=== PATIENT | female | born 1995 | race Caucasian/White ===

== ENCOUNTER 2022-10-23 07:04 | Inpatient (IN) | payer OTHER ==
[2022-10-23] MEDS ORDERED: Promethazine HCl 25 MG/ML VIAL IM PRN ×2 (07:44→08:26)
[2022-10-23] MEDS ORDERED: Acetaminophen 325 MG TAB PO PRN (07:44)
[2022-10-23] MEDS ORDERED: Ondansetron PF 4 MG/2 ML Vial IVP PRN ×2 (07:44→08:26)
[2022-10-23] MEDS ORDERED: Moisturizing Cream (Eucerin) 113 GM JAR TOP PRN (07:44)
[2022-10-23] MEDS ORDERED: diphenhydrAMINE 50 MG/ML VIAL IVP PRN (07:44)
[2022-10-23] MEDS ORDERED: ePHEDrine Sulfate 50 MG/10 ML VIAL SLOW IVP PRN (07:44)
[2022-10-23] MEDS ORDERED: Lactated Ringer's 500 ML IV PRN (07:44)
[2022-10-23] MEDS ORDERED: Naloxone HCl 0.4 mg/ml Vial IVP PRN ×2 (07:44)
[2022-10-23] MEDS ORDERED: Communication Order-Pharmacy FS SCH (07:45)
[2022-10-23] MEDS ORDERED: Fentanyl 2 mcg/Bupivacaine 0.1% Cassette 100 ML EPIDURAL SCH (07:45)
[2022-10-23 07:58] VITALS: BMI 25.2
[2022-10-23] MEDS ORDERED: Penicillin G Potassium 5 MILL.UNITS VIAL ONE (08:04)
[2022-10-23] MEDS ORDERED: Fentanyl 2 mcg/Bup 0.1% Cadd 100 ML ONE (08:22)
[2022-10-23] MEDS ORDERED: Butorphanol Tartrate 1 MG/ML VIAL SLOW IVP PRN (08:26)
[2022-10-23] MEDS ORDERED: Misoprostol 200 MCG TAB PR PRN (08:26)
[2022-10-23] MEDS ORDERED: Lidocaine 1% (PF) 30 ML VIAL SC PRN (08:26)
[2022-10-23] MEDS ORDERED: hydrALAZINE 20 MG/ML VIAL SLOW IVP PRN ×2 (08:26→18:22)
[2022-10-23] MEDS ORDERED: Ibuprofen 800 MG TAB PO PRN (08:26)
[2022-10-23] MEDS ORDERED: HYDROcodone/Acetaminophen 5/325 mg Tablet PO PRN ×4 (08:26→18:22)
[2022-10-23] MEDS ORDERED: Lactated Ringer's 1,000 ML IV SCH (08:30)
[2022-10-23] MEDS ORDERED: Penicillin G Potassium 5 MILL.UNITS in Sodium Chloride 0.9% 100 ML IVPB SCH (08:30)
[2022-10-23] MEDS ORDERED: NS w/ Oxytocin 30 units 500 ML IV SCH ×2 (08:30→18:22)
[2022-10-23 08:57] LABS: Hemoglobin 12.9 g/dL (12.0-15.5); Mean Corpuscular HGB CONC 35.6 g/dL (32.0-36.0); Mean Corpuscular Hemoglobin 31.3 pg (27.0-33.0); Mean Corpuscular Volume 87.9 fl (81.6-98.3); Mean Platelet Volume 10.6 fl (7.4-10.4); Platelet Count 145 10x3/uL (150-450); RBC Distribution Width 12.7 % (11.5-14.5); Red Blood Cell (RBC) Count 4.12 10x6/uL (3.90-5.03); White Blood Cell (WBC) Count 8.9 10x3/uL (3.5-10.5)
[2022-10-23] MEDS ORDERED: Bupivacaine/Epinephrine 0.25% 30 ML VIAL ONE (09:00)
[2022-10-23 09:33] LABS: Syphilis Antibody Nonreactive (Nonreactive); Syphilis Antibody Index 0.03 S/CO (<1.00 Non-Reactive)
[2022-10-23 09:36] LABS: HBSAg Index 0.15 S/CO (0-0.99); Hep B Surf Ag - L&D Non-Reactive S/CO (NonReactive)
[2022-10-23] MEDS ORDERED: Fentanyl 100 MCG/2 ML VIAL ONE (10:29)
[2022-10-23] MEDS ORDERED: Penicillin G 2.5 MILL.units 2.5 MILL.UNITS in Premix Bag 1 BAG IVPB SCH (12:30)
[2022-10-23] MEDS ORDERED: Benzocaine-Menthol 82.5 ML CAN TOP PRN (18:22)
[2022-10-23] MEDS ORDERED: Misoprostol 200 MCG TAB VAG PRN (18:22)
[2022-10-23] MEDS ORDERED: Boostrix 0.5 ML (Tdap) VIAL (>/=7 yrs of age) IM ONE (18:22)
[2022-10-23] MEDS ORDERED: Bisacodyl 10 MG SUPP PR PRN (18:22)
[2022-10-23] MEDS ORDERED: Milk Of Magnesia 30 ML UDCUP PO PRN (18:22)
[2022-10-23] MEDS ORDERED: Ferrous Sulfate 325 MG TAB PO SCH (18:30)
[2022-10-24] MEDS: Docusate 100 MG CAP PO SCH ×2 (04:32→08:44)
[2022-10-24] MEDS: Ibuprofen 800 MG TAB PO SCH ×2 (04:32)
[2022-10-24] MEDS ORDERED: Ferrous Sulfate 325 MG TAB PO SCH (08:00)
[2022-10-24] MEDS ORDERED: Prenatal Vitamin 1 TAB PO SCH (09:00)
[2022-10-24 12:48] VITALS: BP 130/69; TEMP 98.5
== END 2022-10-24 16:30 | disposition home or self-care (01) | DRG 807 ==
LOC: CSHLD/OP 07:04 → CSHLD 07:42 → CSHPP 16:50
PROVIDERS: ADMIT Obstetrics & Gynecology; ATTEND Obstetrics & Gynecology
PROC: 10E0XZZ Delivery of Products of Conception, External Approach (ICD-10-PCS; principal; 2022-10-23)
DX: O80 Encounter for full-term uncomplicated delivery (principal); Z37.0 Single live birth; Z3A.39 39 weeks gestation of pregnancy; Z79.899 Other long term (current) drug therapy
CPT/HCPCS: 51702; 85027; 86780; 86850; 86900; 86901; 87340; 99285; J3010